=== PATIENT | female | born 1945 | race Caucasian/White ===

== ENCOUNTER → 2017-10-17 | Outpatient (CLI) | payer OTHER ==
--- NOTE | 2017-10-17 08:51 | BD ---
EXAMINATION TYPE: MG DEXA axial skeleton. DATE OF EXAM: 10/17/2017 CLINICAL HISTORY: Height: 60.75 Weight: 142 FRAX RISK QUESTIONS: Alcohol (3 or more units per day): no Family History (Parent hip fracture): no Glucocorticoids (More than 3mos): no (Ex: prednisone, prednisolone, methylprednisolone, dexamethasone, and hydrocortisone). History of Fracture in Adulthood: no Secondary Osteoporosis: 1. Type 1 Diabetes: no 2. Hyperthyroidism: no 3. Menopause before 45: no 4. Malnutrition: no 5. Chronic liver disease: no Rheumatoid Arthritis: no Current Tobacco Use: no RISK FACTORS HISTORY OF: Family History of Osteoporosis: no Active: yes Diet low in dairy products/other sources of calcium: no Postmenopausal woman: yes Take estrogen and/or progesterone medications: no Lost more than 2 inches in height since high school: no Frequent falls: no Poor Health: no Hyperparathyroidism: no Adrenal Insufficiency: no MEDICATIONS: Prednisone or other steroids: no Thyroid Medications: no Osteoporosis Medications: no EXAM MEASUREMENTS: Bone mineral densitometry was performed using the [employer] Heart System. Bone mineral density as measured about the Lumbar spine is: ----- L1-L4(G/cm2): 1.410 T Score Values are as follows: ----- L2: 1.7 ----- L3: 2.4 ----- L4: 1.9 ----- L1-L4: 1.9 Bone mineral density has: Increased 1.8% since study of: 07/02/2014 Bone mineral density about the R hip (g/cm2): 0.974 Bone mineral density about the L hip (g/cm2): 0.905 T Score values are as follows: -----R Neck: -0.5 -----L Neck: -1.0 -----R Total: 0.7 -----L Total: 0.3 Bone mineral density has: Decreased -1.8% since study of: 07/02/2014 IMPRESSION: Normal (Values between +1 and -1 indicate normal bone mass). Consider repeating this study in 5 year s or sooner if there is some new clinical indication. NOTE: T-SCORE=SD OF THE YOUNG ADULT MEAN.
--- NOTE | 2017-10-18 11:53 | MM ---
Reason for exam: screening (asymptomatic). Last mammogram was performed 1 year and 1 month ago. History: Patient is postmenopausal and has history of other cancer at age 58. Physical Findings: A clinical breast exam by your physician is recommended on an annual basis and results should be correlated with mammographic findings. MG Screening Mammo w CAD Bilateral CC and MLO view(s) were taken. Prior study comparison: September 26, 2016, bilateral MG screening mammo w CAD. September 30, 2015, bilateral MG screening mammo w CAD. The breast tissue is heterogeneously dense. This may lower the sensitivity of mammography. Finding: There are typically benign vascular, dystrophic calcifications in both breasts. Asymmetric breast tissue in the right anterior position, stable. There is no discrete abnormality. ASSESSMENT: Benign, BI-RAD 2 RECOMMENDATION: Routine screening mammogram of both breasts in 1 year.
== END | disposition home or self-care (01) ==
LOC: RADMAMWWP 06:33
PROVIDERS: ATTEND Obstetrics & Gynecology
DX: Z12.31 Encounter for screening mammogram for malignant neoplasm of breast (principal); Z13.820 Encounter for screening for osteoporosis; E78.4 Other hyperlipidemia
CPT/HCPCS: 36415; 77067; 77080; 80061; 82947; 84443

== ENCOUNTER → 2018-10-30 | Outpatient (CLI) | payer OTHER ==
--- NOTE | 2018-11-01 14:08 | MM ---
Reason for exam: screening (asymptomatic). Last mammogram was performed 1 year ago. History: Patient is postmenopausal and has history of other cancer at age 58. MG Screening Mammo w CAD Bilateral CC and MLO view(s) were taken. Prior study comparison: October 17, 2017, bilateral MG screening mammo w CAD. September 26, 2016, bilateral MG screening mammo w CAD. The breast tissue is heterogeneously dense. This may lower the sensitivity of mammography. No significant changes when compared with prior studies. ASSESSMENT: Benign, BI-RAD 2 RECOMMENDATION: Routine screening mammogram of both breasts in 1 year.
== END | disposition home or self-care (01) ==
LOC: RADMAMWWP 06:48
PROVIDERS: ATTEND Obstetrics & Gynecology
DX: Z12.31 Encounter for screening mammogram for malignant neoplasm of breast (principal)
CPT/HCPCS: 77067

== ENCOUNTER → 2019-11-02 | Outpatient (CLI) | payer OTHER ==
--- NOTE | 2019-11-02 13:27 | MM ---
Reason for exam: screening (asymptomatic). Last mammogram was performed 1 year ago. History: Patient is postmenopausal and has history of other cancer at age 58. Physical Findings: A clinical breast exam by your physician is recommended on an annual basis and results should be correlated with mammographic findings. MG Screening Mammo w CAD Bilateral CC and MLO view(s) were taken. Prior study comparison: October 30, 2018, bilateral MG screening mammo w CAD. October 17, 2017, bilateral MG screening mammo w CAD. The breast tissue is heterogeneously dense. This may lower the sensitivity of mammography. There are benign appearing round, linear, vascular calcifications bilaterally. There is no new dominant lesion. ASSESSMENT: Benign, BI-RAD 2 RECOMMENDATION: Routine screening mammogram of both breasts in 1 year.
== END | disposition home or self-care (01) ==
LOC: RADMAMWWP 06:58
PROVIDERS: ATTEND Obstetrics & Gynecology
DX: Z12.31 Encounter for screening mammogram for malignant neoplasm of breast (principal)
CPT/HCPCS: 77067

== ENCOUNTER → 2020-08-26 | Outpatient (CLI) | payer OTHER ==
[2020-08-26 10:45] VITALS: PULSE 82; RESP 18; TEMP 98
--- NOTE | 2020-08-26 10:58 | P.GSHP ---
History of Present Illness H&P Date: 08/26/20 Chief Complaint: bloody nipple discharge Katherin is a 75 year old white female seen in consultation for Dr. Crisostomo with a complaint of bloody nipple discharge. She noticed this May 14 on the right side. This has been ongoing since it started but only with pressure. She had a bilateral mammogram performed on which was benign BIRADS 2. There is no drainage from the left breast. She is not complaining of any lumps masses or nodules in her breast. She states she has intermittent discomfort in the upper outer quadrant of the right breast, it does not spread anyplace. She does not complain of any trauma or infection in the breast. Caffiene: occasional nicotine: none Theophylline: Several times a week Hormones: none Family History: patient: left groin sarcoma/surgery/radiation 2004 Hormonal History: menarche: 13 , breast fed: none, age at first :24 menopause: 51 BCP: none hormones: none Surgical History: 3 Sarcoma removed left groin Medical history: none Social History: Attending: Negative Alcohol: Occasional Drugs: Negative - Constitutional Constitutional: Denies chills, Denies fever - EENT Eyes: denies blurred vision, denies pain Ears: bilateral: tinnitus, deny: decreased hearing Ears, nose, mouth and throat: Denies headache, Denies sore throat - Breasts Breasts: bilateral: as per HPI - Cardiovascular Cardiovascular: Denies chest pain, Denies shortness of breath - Respiratory Respiratory: Denies cough, Denies 7 - Gastrointestinal Gastrointestinal: Denies abdominal pain, Denies diarrhea, Denies nausea, Denies vomiting - Genitourinary (Female) Genitourinary: Denies dysuria, Denies hematuria - Menstruation Menstruation: Reports postmenopausal - Musculoskeletal Musculoskeletal: Denies myalgias - Integumentary Integumentary: Denies pruritus, Denies rash - Neurological Neurological: Denies numbness, Denies weakness - Psychiatric Psychiatric: Denies anxiety, Denies depression - Endocrine Comment: used to be hypothyroid not on medication at this time Endocrine: Denies fatigue, Denies weight change - Hematologic/Lymphatic Comment: none - Allergic/Immunologic Allergic/Immunologic: Reports as per HPI Past Medical History 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 History of Any Multi-Drug Resistant Organisms: None Reported Past Surgical History: Section Additional Past Surgical History / Comment(s): sarcoma removed lt groin Past Anesthesia/Blood Transfusion Reactions: No Reported Reaction Past Alcohol Use History: Occasional Past Drug Use History: None Reported - Past Family History Mother Family Medical History: Coronary Artery Disease (CAD) Additional Family Medical History / Comment(s): CABG Father Family Medical History: No Reported History Medications and Allergies Home Medications Medication Instructions Recorded Confirmed Type Biotin 5 mg PO DAILY 12/09/14 12/13/14 History Allergies Allergy/AdvReac Type Severity Reaction Status Date / Time No Known Allergies Allergy Verified 12/09/14 14:48 Surgical - Exam - General well developed, well nourished, no distress - Eyes normal ocular movement - ENT no hearing loss, no congestion - Neck no masses, trachea midline - Respiratory normal expansion, normal respiratory effort - Cardiovascular Rhythm: regular Heart Sounds: normal: S1, S2 - Abdomen Abdomen: soft, non tender, no guarding, no rigid, no rebound - Integumentary normal turgor - Neurologic no disoriented, no combative - Musculoskeletal normal gait - Psychiatric oriented to time, oriented to person, oriented to place, speech is normal breast exam: BRA 36B inspection: Grade 2/3 ptosis bilateral breasts, right nipple inversion Palpation: Right breast: Multi-positional exam fibrocystic changes with palpation nipple discharge at the 11 o'clock position Right axilla: No adenopathy of concern Left breast: Fibrocystic changes and multiple positional exam no dominant masses or nodules of concern no nipple discharge Left axilla: No adenopathy of concern Guaiac test positive right nipple discharge Results Mammogram results reviewed Assessment and Plan Assessment: Impression: 1. Inversion right nipple 2. Bloody nipple discharge right side 3. Fibrocystic breast changes 4. Prior history of groin sarcoma 6. Bilateral mammogram October 2019 benign Plan: 1. Ultrasound right breast behind nipple areolar complex/diagnostic right breast mammogram 2. Right duct exploration 3. medical clearance Dr. Simpson Risks and benefits of the procedure discussed with the patient. She understands and wishes to proceed. Risks include but are not limited to bleeding, infection, reaction to the anesthetic. Cc: Dr. Murcia, Dr. Simpson encounter 35 minutes > 50% of time spent in planning and counselling
--- NOTE | 2020-08-26 12:17 | MM ---
Reason for exam: clinical finding. Last mammogram was performed 10 months ago. History: Patient is postmenopausal and has history of other cancer at age 58. Physical Findings: Breast exam performed by Dr. Fiore. MG Diagnostic Mammo RT w CAD CC and MLO view(s) were taken of the right breast. Prior study comparison: November 02, 2019, bilateral MG screening mammo w CAD. October 30, 2018, bilateral MG screening mammo w CAD. October 17, 2017, bilateral MG screening mammo w CAD. September 26, 2016, bilateral MG screening mammo w CAD. September 30, 2015, bilateral MG screening mammo w CAD. The breast tissue is heterogeneously dense. This may lower the sensitivity of mammography. Nipple slightly inverted. Stable anterior superior asymmetric density on the MLO view. Benign secretory calcifications. No significant new findings when compared with previous films. These results were verbally communicated with the patient and result sheet given to the patient on 08/26/20. ASSESSMENT: Incomplete: need additional imaging evaluation, BI-RAD 0 RECOMMENDATION: Ultrasound of the right breast.
--- NOTE | 2020-08-26 12:21 | USB ---
Reason for exam: additional evaluation requested from abnormal screening. History: Patient is postmenopausal and has history of other cancer at age 58. US Breast Limited RT Right limited breast ultrasound including focal area of concern, retroareolar and axilla demonstrates a 2.7 x 0.5cm stretch of nodular duct with internal debris at the posterior nipple. No well defined target for biopsy. Case discussed with Dr. Fiore who requests needle localization to assist with duct exploration. Posterior nipple and axilla scanned. These results were verbally communicated with the patient and result sheet given to the patient on 08/26/20. ASSESSMENT: Suspicious, BI-RAD 4 RECOMMENDATION: Localization and excision of the right breast. Dr. Fiore discussed results with patient. PRELIMINARY REPORT CALLED AND FAXED TO DR. FIORE ON 08/26/20.
== END | disposition home or self-care (01) ==
LOC: WWCWWP 09:59
PROVIDERS: ATTEND Surgery
DX: N64.52 Nipple discharge (principal)
CPT/HCPCS: 77065

== ENCOUNTER → 2020-09-23 | Outpatient (CLI) | payer OTHER ==
[2020-09-23 10:41] VITALS: BP 165/80; PULSE 72; RESP 18; TEMP 98.2
--- NOTE | 2020-09-23 10:57 | P.PN ---
Subjective Progress Note Date: 09/23/20 Principal diagnosis: bloody nipple discharge History of Present Illness H&P Date: 09-23-20 Chief Complaint: bloody nipple discharge Katherin is a 75 year old white female seen in consultation for Dr. Andressa cross a complaint of bloody nipple discharge. She noticed this May 14 on the right side. This has been ongoing since it started but only with pressure. She had a bilateral mammogram performed on which was benign BIRADS 2. There is no drainage from the left breast. She is not complaining of any lumps masses or nodules in her breast. She states she has intermittent discomfort in the up per outer quadrant of the right breast, it does not spread anyplace. She does not complain of any trauma or infection in the breast. She underwent repeat mammogram and ultrasound of the right breast on 08-26-20 and this revealed a dilated duct, but nothing which would warrant core biopsy. Caffiene: occasional nicotine: none Theophylline: Several times a week Hormones: none Family History: patient: left groin sarcoma/surgery/radiation 2004 Hormonal History: menarche: 13 , breast fed: none, age at first :24 menopause: 51 BCP: none hormones: none Surgical History: 3 Sarcoma removed left groin Medical history: none Social History: Attending: Negative Alcohol: Occasional Drugs: Negative - Constitutional Constitutional: Denies chills, Denies fever - EENT Eyes: denies blurred vision, denies pain Ears: bilateral: tinnitus, deny: decreased hearing Ears, nose, mouth and throat: Denies headache, Denies sore throat - Breasts Breasts: bilateral: as per HPI - Cardiovascular Cardiovascular: Denies chest pain, Denies shortness of breath - Respiratory Respiratory: Denies cough, - Gastrointestinal Gastrointestinal: Denies abdominal pain, Denies diarrhea, Denies nausea, Denies vomiting - Genitourinary (Female) Genitourinary: Denies dysuria, Denies hematuria - Menstruation Menstruation: Reports postmenopausal - Musculoskeletal Musculoskeletal: Denies myalgias - Integumentary Integumentary: Denies pruritus, Denies rash - Neurological Neurological: Denies numbness, Denies weakness - Psychiatric Psychiatric: Denies anxiety, Denies depression - Endocrine Comment: used to be hypothyroid not on medication at this time Endocrine: Denies fatigue, Denies weight change - Hematologic/Lymphatic Comment: none - Allergic/Immunologic Allergic/Immunologic: Reports as per HPI Objective - Exam BMI 25.5 - Constitutional General appearance: Present: average body habitus, cooperative - EENT Eyes: Present: EOMI ENT: Present: hearing grossly normal - Neck Neck: Present: normal ROM - Respiratory Respiratory: bilateral: CTA - Cardiovascular Rhythm: regular Heart sounds: normal: S1, S2 - Gastrointestinal General gastrointestinal: Present: soft - Integumentary Integumentary: Present: normal turgor - Musculoskeletal Musculoskeletal: Present: gait normal - Psychiatric Psychiatric: Present: A&O x's 3, appropriate affect, intact judgment & insight - Additional findings Additional findings: breast exam: BRA: 36B inspection: inversion right nipple; ptosis right grade 2/3, ptosis left grade 3 nipple not inverted Patient: Right breast: Multiple positional exam fibrocystic changes, at the 11 to 11:30 position there is discharge which is bloody in nature Right axilla: No adenopathy of concern Left breast: Multi-positional exam fibrocystic changes no dominant masses or nodules of concern and no nipple discharge Left axilla: No adenopathy of concern Assessment and Plan Assessment: Impression: 1. Inversion right nipple 2. Bloody nipple discharge right side 11:30 3. Fibrocystic breast changes 4. By history of groin sarcoma 5. Right breast mammogram and ultrasound showed dilated duct on [id number] 6. Her last bilateral mammogram was October 2019 this was benign Plan: Katherin underwent a mammogram and ultrasound of the right breast on 08-26-20. This did reveal a dilated duct but nothing which would warrant a core biopsy. In order to assure that we remove the duct of concern she will have needle localization prior to the surgical procedure. Therefore surgical procedure is 1. Needle localization/excisional biopsy/duct exploration right breast 2. Possible onco-plastic tissue transfer 3. Possible mastopexy incision 4. clearance form Dr. Simpson Risks and benefits of the procedure have been discussed with the patient. She understands risks include but are not limited to bleeding, infection, reaction to the anesthetic. She also understands the operative approach I have drawn a possible in decision plan for a crescent mastopexy incision. She understands that the nipple areolar complex on the right will be higher than it is on the left) approach and she wishes to proceed.
== END | disposition home or self-care (01) ==
LOC: WWCWWP 10:14
PROVIDERS: ATTEND Surgery
DX: Z53.9 Procedure and treatment not carried out, unspecified reason (principal)

== ENCOUNTER → 2020-10-24 | Outpatient (CLI) | payer OTHER ==
--- NOTE | 2020-10-25 08:24 | MM ---
Reason for exam: additional evaluation requested from prior study. Last mammogram was performed 2 months ago. History: Patient is postmenopausal and has history of other cancer at age 58. Physical Findings: Nurse did not find any significant physical abnormalities on exam. MG Diagnostic Mammo LT w CAD CC and MLO view(s) were taken of the left breast. Prior study comparison: August 26, 2020, right breast MG diagnostic mammo RT w CAD. November 02, 2019, bilateral MG screening mammo w CAD. The breast tissue is heterogeneously dense. This may lower the sensitivity of mammography. Upper outer quadrant focal asymmetry partially disperses on additional views. Precautionary ultrasound recommended. These results were verbally communicated with the patient and result sheet given to the patient on 10/24/20. ASSESSMENT: Incomplete: need additional imaging evaluation, BI-RAD 0 RECOMMENDATION: Ultrasound of the left breast. (upper outer quadrant)
--- NOTE | 2020-10-25 08:25 | USB ---
Reason for exam: additional evaluation requested from abnormal screening. History: Patient is postmenopausal and has history of other cancer at age 58. US Breast Limited LT Left limited breast ultrasound including focal area of concern, retroareolar and axilla demonstrates no cystic or solid lesion seen. Scanned 12-3 o'clock. These results were verbally communicated with the patient and result sheet given to the patient on 10/24/20. ASSESSMENT: Probably benign, BI-RAD 3 RECOMMENDATION: Follow-up diagnostic mammogram of the left breast in 6 months.
== END | disposition home or self-care (01) ==
LOC: RADMAMWWP 14:59
PROVIDERS: ATTEND Surgery
DX: R92.8 Other abnormal and inconclusive findings on diagnostic imaging of breast (principal)
CPT/HCPCS: 77065

== ENCOUNTER 2020-10-25 11:51 | Day surgery (SDC) | payer OTHER ==
[2020-10-24 08:52] VITALS: BMI 25.4
[~2020-10-25 11:51] MED LIST: DEXAMETHASONE SOD PHOSPHATE 4 MG/ML 1 ML VIAL IV ONE; HEPARIN SODIUM,PORCINE 5,000 UNIT/ML 1 ML VIAL SQ PRN; LACTATED RINGERS 1,000 ML IV SCH; LIDOCAINE 1% (10MG/ML) FOR IV START INTRADERMA PRN; MIDAZOLAM 2 MG/2 ML VIAL IV PRN; ONDANSETRON 4 MG/2 ML VIAL IVP ONE; Pre Op ABX Message 1 EACH MISC MISCELLANE ONE
[2020-10-25] MEDS ORDERED: LACTATED RINGERS 1,000 ML IV ONE (12:15)
[2020-10-25] MEDS ORDERED: ALPRAZolam 0.25 MG TAB PO ONE (12:21)
[2020-10-25] MEDS ORDERED: LIDOCAINE 1% INJ 10MG/ML (20 ML MDV) SQ ONE (14:46)
[2020-10-25] MEDS ORDERED: fentaNYL (PF) 50 MCG/ML 2 ML AMP ONE (15:36)
[2020-10-25] MEDS ORDERED: PROPOFOL 10 MG/ML 20 ML VIAL IV ONE (15:36)
[2020-10-25] MEDS ORDERED: MIDAZOLAM 2 MG/2 ML VIAL ONE (15:36)
[2020-10-25] MEDS ORDERED: LIDOCAINE 1% INJ 10MG/ML (20 ML MDV) ONE (15:36)
--- NOTE | 2020-10-25 16:44 | P.OP ---
Date of Procedure: 10/25/20 Preoperative Diagnosis: bloody Nipple discharge right breast 11:30 position Postoperative Diagnosis: Same Procedure(s) Performed: Right breast duct exploration with needle localization dilated duct preprocedure Anesthesia: ROSELYN Surgeon: Xenia Fiore Estimated Blood Loss (ml): 10 IV fluids (ml): 600 Pathology: other (Breast tissue) Condition: stable Disposition: same day Indications for Procedure: Bloody nipple discharge right breast 11:30 position was dilated duct on ultrasound Operative Findings: Dilated duct right breast Description of Procedure: Katherin is a 75-year-old white female who was noted to have bloody nipple discharge, from the right nipple at the 11:30 position. An ultrasound of the area revealed a dilated duct. The duct was localized via needle localization. The patient was brought to the operating room and following induction of anesthesia the right breast was prepped and draped in a sterile fashion. Periareolar incision was performed. This was dissected under the nipple areolar complex at the 11:30 position. This tissue was followed inferiorly to the pectoralis muscle circumferentially around the needle which had been placed for localization. Following this after assured that hemostasis was attained the pelvis specimen was painted for orientation. Titanium clips were placed. The deep tissues were closed using 3-0 Vicryl suture. The skin was closed using a 4-0 Monocryl followed by a 4-0 nylon suture. Patient tolerated the procedure in stable condition. All instrument and sponge counts were correct at the end of the case.
--- NOTE | 2020-10-25 16:47 | P.DS ---
Providers Attending physician: Xenia Fiore Primary care physician: Donavan Simpson Plan - Discharge Summary Discharge Rx Participant: No New Discharge Prescriptions: No Action Cholecalciferol [Vitamin D3] 2,000 unit PO DAILY Levothyroxine Sodium [Synthroid] 25 mcg PO DAILY Discharge Medication List Cholecalciferol [Vitamin D3] 2,000 unit PO DAILY 08/26/20 [History] Levothyroxine Sodium [Synthroid] 25 mcg PO DAILY 09/23/20 [History] Follow up Appointment(s)/Referral(s): Xenia Fiore MD [STAFF PHYSICIAN] - 11/03/20 3:20 pm Activity/Diet/Wound Care/Special Instructions: do not drive today may shower after [address] if taking narcotic pain medication wear bra at all times Discharge Disposition: HOME SELF-CARE
[2020-10-25] MEDS: HYDROmorphone 0.5 MG/0.5 ML SYRINGE IVP PRN ×3 (17:05→17:31)
[2020-10-25 17:27] VITALS: TEMP 97.1
[2020-10-25 17:36] VITALS: RESP 16
[2020-10-25] MEDS ORDERED: ONDANSETRON 4 MG/2 ML VIAL IVP ONE (17:47)
--- NOTE | 2020-10-25 18:16 | USB ---
EXAMINATION TYPE: US breast localization RT, MG diagnostic mammo RT wo CAD (mammogram after wire placement) DATE OF EXAM: 10/25/2020 CLINICAL HISTORY: 75-year-old female with bloody nipple discharge on the right for duct exploration, needle localization requested. TECHNIQUE: Needle localization with wire placement and surgical excision of segment of ectatic duct in the 10:00 right breast. COMPARISON: 08/26/2020 FINDINGS: The procedure of needle localization with wire placement and than surgical excision was explained to the patient. Benefits, alternatives, and risks were discussed. An informed consent was then obtained. The shortest pathway for procedure was chosen. Shortest pathway was a 10:00 periareolar approach. The overlying skin was prepped and draped in usual sterile fashion. Lidocaine was used as anesthetic into the skin and subcutaneous tissue up to the level of area of concern. A 7 cm Kopans needle was used. It was placed via a 10:00 periareolar approach under ultrasound guidance. The needle traversed 2 segments of ectatic duct containing hypoechoic material. At this point, wire was placed and the needle was withdrawn. Postprocedure mammogram in the MLO view was obtained and shows the wire in position. The wire was fixed to patient's skin. Images were marked for surgeon. The patient tolerated the procedure well without any immediate complication. The patient was kept in the radiology department for short stay after the procedure and then taken to surgery for surgical excision. No specimen mammogram or specimen ultrasound is obtained. The patient was kept in hospital for short stay after the procedure and then discharged home in stable condition. IMPRESSION: Successful ultrasound-guided needle localization of an ectatic, hypoechoic 10:00 duct in the right breast for surgical duct exploration. Full pathology results to follow. Pathology Results: High Risk RIGHT BREAST, EXCISION: Benign intraductal papilloma, 2 mm microscopically. Negative for in situ or invasive carcinoma. Benign margins of resection. Fibrocystic change with apocrine metaplasia, focal mild usual ductal hyperplasia, microcalcification, focal columnar cell change and sclerosing adenosis. Recommendation Follow up mammogram of the right breast in 6 months. MTDD
[2020-10-25 18:20] VITALS: BP 134/60; PULSE 60
== END 2020-10-25 18:36 | disposition home or self-care (01) ==
LOC: OR 11:51
PROVIDERS: ATTEND Surgery
DX: D24.1 Benign neoplasm of right breast (principal); N64.52 Nipple discharge; N60.41 Mammary duct ectasia of right breast; N64.4 Mastodynia; N64.59 Other signs and symptoms in breast; N64.81 Ptosis of breast; N60.12 Diffuse cystic mastopathy of left breast; N60.11 Diffuse cystic mastopathy of right breast; Z98.890 Other specified postprocedural states; Z85.831 Personal history of malignant neoplasm of soft tissue; Z78.0 Asymptomatic menopausal state; Z79.890 Hormone replacement therapy
CPT/HCPCS: 19110; 19285; 88307; 77065; J2250; J1644; J1100; J2405; J2001; J3010; J2704; J1170; 88305

== ENCOUNTER → 2020-11-04 | Outpatient (CLI) | payer OTHER ==
[2020-11-04 15:46] VITALS: BP 174/84; PULSE 56; RESP 16; TEMP 98.2
--- NOTE | 2020-11-04 15:52 | P.PN ---
Progress Note - Text Progress Note Date: 11/04/20 Katherin is a 75-year-old white female who presented with bloody nipple discharge. An ultrasound was done which revealed a dilated duct. She is status post ultrasound needle localization and excision of right breast duct. [place] [id number]. Pathology revealed intraductal papilloma. Patient has done well postoperatively. Physical examination: Incision clean and dry Impression: Intraductal papilloma right breast Plan: suture removal repeat right breast mammogram and physician exam in 6 months CC: Dr. Crisostomo, Dr. Simpson
== END | disposition home or self-care (01) ==
LOC: WWCWWP 15:11
PROVIDERS: ATTEND Surgery
DX: Z53.9 Procedure and treatment not carried out, unspecified reason (principal)

== ENCOUNTER → 2021-04-25 | Outpatient (CLI) | payer OTHER ==
--- NOTE | 2021-04-26 07:38 | MM ---
Reason for exam: follow-up at short interval from prior study. Last mammogram was performed 6 months ago. History: Patient is postmenopausal, has history of high-risk lesion on a previous biopsy at age 75, and has history of other cancer at age 58. High risk US breast localization RT of the right breast, October 25, 2020. Physical Findings: Nurse did not find any significant physical abnormalities on exam. MG Diagnostic Mammo w CAD JIM Bilateral CC and MLO view(s) were taken. Prior study comparison: October 25, 2020, right breast MG diagnostic mammo RT wo CAD. August 26, 2020, right breast MG diagnostic mammo RT w CAD. November 02, 2019, bilateral MG screening mammo w CAD. October 30, 2018, bilateral MG screening mammo w CAD. There are scattered fibroglandular densities. Right post operative change. These results were verbally communicated with the patient and result sheet given to the patient on 04/25/21. ASSESSMENT: Benign, BI-RAD 2 RECOMMENDATION: Routine screening mammogram of both breasts in 1 year.
== END | disposition home or self-care (01) ==
LOC: RADMAMWWP 14:16
PROVIDERS: ATTEND Surgery
DX: R92.8 Other abnormal and inconclusive findings on diagnostic imaging of breast (principal)
CPT/HCPCS: 77066

== ENCOUNTER → 2021-05-04 | Outpatient (CLI) | payer OTHER ==
--- NOTE | 2021-05-04 11:00 | P.PN ---
Subjective Progress Note Date: 05/04/21 Principal diagnosis: BMI 26.5 Katherin is a 75 year old white female seen initially in consultation for Dr. Crisostomo with a complaint of bloody nipple discharge. She noticed this May 14 2020 on the right side. This had been ongoing since it started but only with pressure. [place] [address] which was benign BIRADS 2. There was no drainage from the left breast. [place] [address]. Pathology revealed an intraductal papilloma. She is not complaining of any lumps masses or nodules in her breast. She is not having any more nipple discharge at this time. [place] [address] which did not show any lesions of concern was benign BIRADS 2. Routine screening of both breast 1 year was recommended. She does not complain of any trauma or infection in the breast. Caffiene: occasional nicotine: none chocolate: occasional Hormones: none Family History: patient: left groin sarcoma/surgery/radiation 2004 Hormonal History: menarche: 13 , breast fed: none, age at first :24 menopause: 51 BCP: none hormones: none Surgical History: 3 Sarcoma removed left groin torn meniscus right knee right duct exploration Medical history: herniated disc cervical and lumbar spine Bilateral carpal tunnel Social History: nicotine: Negative Alcohol: Occasional Drugs: Negative - Constitutional Constitutional: Denies chills, Denies fever - EENT Eyes: denies blurred vision, denies pain Ears: bilateral: tinnitus, deny: decreased hearing Ears, nose, mouth and throat: Denies headache, Denies sore throat - Breasts Breasts: bilateral: as per HPI - Cardiovascular Cardiovascular: Denies chest pain, Denies shortness of breath - Respiratory Respiratory: Denies cough - Gastrointestinal Gastrointestinal: Denies abdominal pain, Denies diarrhea, Denies nausea, Denies vomiting - Genitourinary (Female) Genitourinary: Denies dysuria, Denies hematuria - Menstruation Menstruation: Reports postmenopausal - Musculoskeletal Musculoskeletal: Denies myalgias - Integumentary Integumentary: Denies pruritus, Denies rash - Neurological Neurological: Denies numbness, Denies weakness - Psychiatric Psychiatric: Denies anxiety, Denies depression - Endocrine Comment: used to be hypothyroid not on medication at this time Endocrine: Denies fatigue, Denies weight change - Hematologic/Lymphatic Comment: none - Allergic/Immunologic Allergic/Immunologic: Reports as per HPI Objective - Vital Signs Vital signs: Vital Signs Temp 98.0 F 05/04/21 10:16 Pulse 73 05/04/21 10:16 Resp 18 05/04/21 10:16 BP 164/78 05/04/21 10:16 Pulse Ox 98 05/04/21 10:16 Intake & Output 05/03/21 05/04/21 05/04/21 18:59 06:59 18:59 Weight 63.503 kg - Exam BMI 26.5 - Constitutional General appearance: Present: average body habitus - EENT Eyes: Present: EOMI ENT: Present: hearing grossly normal - Neck Neck: Present: normal ROM - Respiratory Respiratory: bilateral: CTA, wheezing (at bases) - Cardiovascular Heart sounds: normal: S1, S2 - Integumentary Integumentary: Present: normal turgor - Musculoskeletal Musculoskeletal: Present: gait normal - Psychiatric Psychiatric: Present: A&O x's 3, appropriate affect, intact judgment & insight - Additional findings Additional findings: Breast exam: BRA: 36B inspection: Well-healed scar right breast related to duct exploration Palpation: Right breast: Multiple positional exam fibrocystic changes, well-healed scar from prior duct exploration, fullness at site of scar believed to be related to scar tissue Right axilla: No adenopathy of concern Left breast: Multi-positional exam no dominant masses or nodules of concern Left axilla: No adenopathy of concern Assessment and Plan Assessment: Impression: 1. bilateral wheezing at lung bases 2. Fibrocystic breast changes 3.BIRAD 2 mammogram 04-25-21 Plan: 1. Bilateral mammogram in 1 year with physician exam at that time 2. Patient is following with Dr. Simpson regarding bilateral wheezing at lung bases 3. Lumbar and cervical herniated disc/ following with neurology CC: Dr. Simpson, Dr. Crisostomo
[2021-05-04 11:19] VITALS: BP 164/78; PULSE 73; RESP 18; TEMP 98
== END ==
LOC: WWCWWP 10:01
PROVIDERS: ATTEND Surgery
DX: Z53.9 Procedure and treatment not carried out, unspecified reason (principal)

== ENCOUNTER → 2022-04-27 | Outpatient (CLI) | payer MEDICARE ==
--- NOTE | 2022-04-27 09:47 | MM ---
Reason for Exam: Screening (asymptomatic). Last screening mammogram was performed 12 month(s) ago. Patient History: Menarche at age 13. First Full-Term at age 24. Postmenopausal. Other cancer, age 58. 10/25/2020, High risk Core Biopsy on the right side. Risk Values: Joan 5 year model risk: 1.9%. NCI Lifetime model risk: 4.0%. Prior Study Comparison: 10/24/2020 Left Diagnostic Mammogram, [facility]. 10/25/2020 Right Diagnostic Mammogram, [facility]. 04/25/2021 Bilateral Diagnostic Mammogram, [facility]. Tissue Density: The breast tissue is heterogeneously dense. This may lower the sensitivity of mammography. Findings: Analyzed By CAD. Post interventional changes within the right breast. There is no suspicious group of microcalcifications or new suspicious mass in either breast. Overall Assessment: Benign, BI-RAD 2 Management: Screening Mammogram of both breasts in 1 year. A clinical breast exam by your physician is recommended on an annual basis and results should be correlated with mammographic findings. Electronically signed and approved by: Ramon Carter DO
== END | disposition home or self-care (01) ==
LOC: RADMAMWWP 06:50
PROVIDERS: ATTEND Surgery
DX: Z12.31 Encounter for screening mammogram for malignant neoplasm of breast (principal)
CPT/HCPCS: 77063; 77067

== ENCOUNTER → 2022-05-03 | Outpatient (CLI) | payer OTHER ==
[2022-05-03 08:40] VITALS: BP 172/81; PULSE 74; RESP 17; TEMP 97.8
--- NOTE | 2022-05-03 09:00 | P.PN ---
Subjective Progress Note Date: 05/03/22 Principal diagnosis: papilloma right breast resected in 10-25-20 Katherin is a 76 year old white female seen initially in consultation for Dr. Crisostomo with a complaint of bloody nipple discharge. She noticed this May 14 2020 on the right side. This had been ongoing since it started but only with pressure. She had a bilateral mammogram performed on which was benign BIRADS 2. There was no drainage from the left breast. She underwent a right breast duct exploration on . Pathology revealed an intraductal papilloma. She is not complaining of any lumps masses or nodules in her breast. She had a bilateral mammogram performed on . This was benign BIRADS 2. Postoperative changes were noted in the right breast, no lesions of concern noted in the left mammogram. She is not complaining of any nipple this charge at this time. She has no lumps masses or nodules of concern in either breast. Caffiene: occasional nicotine: none chocolate: occasional Hormones: none Family History: patient: left groin sarcoma/surgery/radiation 2004 Hormonal History: menarche: 13 , breast fed: none, age at first :24 menopause: 51 BCP: none hormones: none Surgical History: 3 Sarcoma removed left groin torn meniscus right knee right duct exploration Medical history: herniated disc cervical and lumbar spine Bilateral carpal tunnel Social History: nicotine: Negative Alcohol: Occasional Drugs: Negative - Constitutional Constitutional: Denies chills, Denies fever - EENT Eyes: denies blurred vision, denies pain Ears: bilateral: tinnitus, deny: decreased hearing Ears, nose, mouth and throat: Denies headache, Denies sore throat - Breasts Breasts: bilateral: as per HPI - Cardiovascular Cardiovascular: Denies chest pain, Denies shortness of breath - Respiratory Respiratory: Denies cough - Gastrointestinal Gastrointestinal: Denies abdominal pain, Denies diarrhea, Denies nausea, Denies vomiting - Genitourinary (Female) Genitourinary: Denies dysuria, Denies hematuria - Menstruation Menstruation: Reports postmenopausal - Musculoskeletal Musculoskeletal: Denies myalgias - Integumentary Integumentary: Denies pruritus, Denies rash - Neurological Neurological: Denies numbness, Denies weakness - Psychiatric Psychiatric: Denies anxiety, Denies depression - Endocrine Comment: used to be hypothyroid not on medication at this time Endocrine: Denies fatigue, Denies weight change - Hematologic/Lymphatic Comment: none - Allergic/Immunologic Allergic/Immunologic: Reports as per HPI Objective - Vital Signs Vital signs: Vital Signs Temp 97.8 F 05/03/22 08:37 Pulse 74 05/03/22 08:37 Resp 17 05/03/22 08:37 BP 172/81 05/03/22 08:37 Pulse Ox 97 05/03/22 08:37 FiO2 Intake & Output 05/02/22 05/03/22 05/03/22 18:59 06:59 18:59 Weight 61.235 kg - Exam BMI: 25.5 - Constitutional General appearance: Present: cooperative - EENT Eyes: Present: EOMI ENT: Present: hearing grossly normal - Neck Neck: Present: normal ROM - Respiratory Respiratory: bilateral: CTA - Cardiovascular Rhythm: regular Heart sounds: normal: S1, S2 - Gastrointestinal General gastrointestinal: Present: soft - Integumentary Integumentary: Present: normal turgor - Musculoskeletal Musculoskeletal: Present: gait normal - Psychiatric Psychiatric: Present: A&O x's 3, appropriate affect, intact judgment & insight - Additional findings Additional findings: Breast Exam: BRA: 36B Inspection: Postoperative changes right breast, bilateral grade 2 ptosis Palpation: Right breast: Multiple positional exam fibrocystic changes no dominant masses or nodules of concern Postoperative changes Right axilla: No adenopathy of concern Left breast: Multiple positional exam fibrocystic changes no dominant masses or nodules of concern Left axilla: No adenopathy of concern Fungal changes under bilateral breast patient will be given nystatin Skin changes seborrheic keratosis left breast, over her back there are some areas of seborrheic keratosis with at the right mid back near the bra strap line there is a dark nevus for which excision is recommended Assessment and Plan Assessment: Impression: Fibrocystic breast changes Prior intraductal papilloma right breast no evidence of recurrence Skin lesion right posterior back near bra strap Fungal infection under breast Plan: Bilateral mammogram in 1 year Excision of dark nevus right posterior back in the office Nystatin cream for fungal infection Cc: Dr. Murcia, Dr. Simpson
== END ==
LOC: WWCWWP 08:30
PROVIDERS: ATTEND Surgery
DX: N60.11 Diffuse cystic mastopathy of right breast (principal); N60.12 Diffuse cystic mastopathy of left breast; L98.9 Disorder of the skin and subcutaneous tissue, unspecified; B36.8 Other specified superficial mycoses; Z98.890 Other specified postprocedural states

== ENCOUNTER → 2022-08-23 | Outpatient (CLI) | payer MEDICARE ==
[2022-08-23 11:11] VITALS: BP 165/80; PULSE 68; RESP 16; TEMP 97.9
--- NOTE | 2022-08-23 11:50 | P.PCN ---
Date of Procedure: 08/23/22 Preoperative Diagnosis: lesion right posterior back at bra line Postoperative Diagnosis: same Procedure(s) Performed: excision of lesion right posterior back Anesthesia: local Surgeon: Xenia Fiore Pathology: other (lesion right posterior back) Condition: stable Disposition: same day Indications for Procedure: suspicious lesion right posterior back Operative Findings: lesion right posterior back Description of Procedure: Katherin is a 77-year-old white female with a nevus on her right posterior back for excision. The area was prepped using Betadine. 1% lidocaine was used to anesthetize the area of concern. Wide excision was performed. The lesion was approximately 1.3 cm in size. The incision was closed using 3-0 nylon suture. The patient tolerated the procedure in stable condition. The patient will follow-up in one week for suture removal.
== END | disposition home or self-care (01) ==
LOC: WWCWWP 10:52
PROVIDERS: ATTEND Surgery
DX: Z53.9 Procedure and treatment not carried out, unspecified reason (principal)
CPT/HCPCS: 88305

== ENCOUNTER → 2022-09-04 | Outpatient (CLI) | payer MEDICARE ==
--- NOTE | 2022-09-04 13:39 | P.PN ---
Progress Note - Text Progress Note Date: 09/04/22 Patient is status post removal of nevis from back on 08-23-22, this was seborrheic keratosis Incision clean and dry Plan: Follow-up April 2023 with bilateral mammogram Patient to follow up sooner any questions or concerns CC: DR. Simpson
[2022-09-04 15:28] VITALS: BP 174/76; PULSE 76; RESP 17; TEMP 97.5
== END | disposition home or self-care (01) ==
LOC: WWCWWP 11:46
PROVIDERS: ATTEND Surgery
DX: Z53.9 Procedure and treatment not carried out, unspecified reason (principal)

== ENCOUNTER 2023-04-02 10:12 | Day surgery (SDC) | payer MEDICARE ==
[2023-03-29 10:47] VITALS: BMI 25.4
[~2023-04-02 10:12] MED LIST changes: +ALPRAZolam 0.25 MG TAB PO PRN; +ALPRAZolam 0.5 MG TAB PO PRN; +ASPIRIN 325 MG TAB PO ONE; -DEXAMETHASONE SOD PHOSPHATE 4 MG/ML 1 ML VIAL IV ONE; -HEPARIN SODIUM,PORCINE 5,000 UNIT/ML 1 ML VIAL SQ PRN; -LACTATED RINGERS 1,000 ML IV SCH; -LIDOCAINE 1% (10MG/ML) FOR IV START INTRADERMA PRN; -MIDAZOLAM 2 MG/2 ML VIAL IV PRN; +NITROGLYCERIN SL TABS 0.4 MG TAB SUBLINGUAL PRN; -ONDANSETRON 4 MG/2 ML VIAL IVP ONE; -Pre Op ABX Message 1 EACH MISC MISCELLANE ONE; +SODIUM CHLORIDE 0.9% 1,000 ML in EMPTY BAG 1 BAG IV SCH
[2023-04-02] MEDS ORDERED: SODIUM CHLORIDE 0.9% 1,000 ML IV ONE (10:29)
[2023-04-02 10:58] VITALS: PULSE 70; RESP 16; TEMP 97.9
[2023-04-02] MEDS ORDERED: VERAPAMIL 2.5 MG/ML 2 ML AMP ONE (12:02)
[2023-04-02 12:06] LABS: African American GFR (CKD) >90 (>60 ml/min/1.73 sqM); Anion Gap 8 mmol/L; Blood Urea Nitrogen 16 mg/dL (7-17); Calcium 9.1 mg/dL (8.4-10.2); Carbon Dioxide 23 mmol/L (22-30); Chloride 99 mmol/L (98-107); Glucose 91 mg/dL (74-99); Non-African American GFR(CKD) 89 (>60 ml/min/1.73 sqM); Sodium 130 mmol/L (137-145)
[2023-04-02] MEDS ORDERED: HEPARIN SODIUM 1,000 UN/ML (10ML VL) ONE (12:07)
[2023-04-02] MEDS ORDERED: fentaNYL (PF) 50 MCG/ML 2 ML AMP ONE (12:07)
[2023-04-02] MEDS ORDERED: fentaNYL (PF) 50 MCG/ML 2 ML AMP IV ONE (12:29)
[2023-04-02] MEDS ORDERED: LIDOCAINE 1% INJ 10MG/ML (5 ML VIAL-PF) SQ ONE (12:33)
[2023-04-02] MEDS ORDERED: VERAPAMIL SYRINGE (5 MG/10 ML) INTRAARTER ONE (12:34)
[2023-04-02] MEDS ORDERED: HEPARIN SODIUM 1,000 UN/ML (10ML VL) IV ONE (12:38)
[2023-04-02] MEDS ORDERED: IOPAMIDOL-370 100ML BTL INJ ONE (12:41)
[2023-04-02] MEDS ORDERED: RX INFO: IV CONTRAST WAS GIVEN 1 EACH MISC MISCELLANE PRN (13:06)
--- NOTE | 2023-04-02 13:11 | P.CARDCATH ---
Date of Procedure: 04/02/23 Description of Procedure: Cardiac Catheterization: The patient is a 77-year-old female with a known history of hypertension hyperlipidemia who recently had an abnormal MPI. Recommendations were made regarding cardiac catheterization, the risks and the complications were discussed with the patient who is in full understanding and agreement. Procedure Description: Patient was brought to dental laboratory worker in fasting semi-sedated state after receiving Fentanyl and Benadryl achieiving moderate conscious sedated state. Using Xylocaine Anesthesia and Seldinger technique, a 6-[place] sheath was introduced in the right radial artery . Subsequently, selective coronary angiography was performed using a 5-[place] 3.5 bend Luis catheter. Multiple views of the coronary artery including hemiaxial views were obtained. The 5-[place] pigtail catheter was used to cross the aortic valve and LVEDP was calculated. Following that, catheter and sheath were removed. Hemostasis was obtained with deployment of TR band . There was no immediate complication. Patient was returned to room in stable condition. Of note, the patient received a total of 3500 units of intravenous heparin as well as intra-arterial verapamil. Findings: Left main: This is a large-size vessel, bifurcating into LAD and left circumflex, left main has no high-grade stenosis LAD: This is a large-size vessel patient to the apex giving rise to 2 diagonal branch, the LAD has no evidence of obstructive disease Left circumflex: This is a codominant vessel giving rise to large proximal obtuse marginal branch and the second one this morning and caliber, distally bifurcates into PDA and PLV, the left circumflex and its branches have no evidence of high-grade stenosis RCA: This is a codominant moderately sized vessel giving rise to PDA distally. The right coronary artery is tortuous in the midsegment and has no obstructive disease. Left Ventriculogram: Not performed Hemodynamics: There is no gradient across the aortic valve, LVEDP was 16-18 mmHg Conclusion: 1. Normal coronary arteries 2. Codominant system Recommendations: I see no evidence of obstructive disease at this time, I have recommended to continue medical therapy with aggressive coronary risks modifications. The findings and the recommendations were discussed with the patient and the family and they were in full understanding and agreement. Duration of sedation is 12 minutes.
[2023-04-02] MEDS ORDERED: SODIUM CHLORIDE 0.9% 1,000 ML IV SCH (13:15)
[2023-04-02 14:31] VITALS: BP 124/62
[2023-04-02] MEDS ORDERED: amLODIPine 5 MG TAB PO SCH (21:00)
[2023-04-03] MEDS ORDERED: LEVOTHYROXINE 25 MCG TAB PO SCH (09:00)
[2023-04-03] MEDS ORDERED: NON FORMULARY DRUG (Aspirin [St. Joseph Aspirin Ec] 81 MG Tab) PO SCH (09:00)
[2023-04-03] MEDS ORDERED: ATORVASTATIN 20 MG TAB PO SCH (09:00)
[2023-04-03] MEDS ORDERED: lisinopriL 20 MG TAB PO SCH (09:00)
== END 2023-04-02 16:45 | disposition home or self-care (01) ==
LOC: CATHCVL 10:12
PROVIDERS: ATTEND Internal Medicine Interventional Cardiology
DX: I77.9 Disorder of arteries and arterioles, unspecified (principal); I10 Essential (primary) hypertension; E78.2 Mixed hyperlipidemia; I25.9 Chronic ischemic heart disease, unspecified; Z79.82 Long term (current) use of aspirin; Z79.899 Other long term (current) drug therapy; E07.9 Disorder of thyroid, unspecified; Z79.890 Hormone replacement therapy; Z87.891 Personal history of nicotine dependence; F10.20 Alcohol dependence, uncomplicated
CPT/HCPCS: 93458; 99152; 80048; C1769; C1894; J2001; J3010; J1644; Q9967

== ENCOUNTER → 2023-04-29 | Outpatient (CLI) | payer MEDICARE ==
--- NOTE | 2023-04-30 19:49 | MM ---
Reason for Exam: Screening (asymptomatic). Last screening mammogram was performed 12 month(s) ago. Patient History: Menarche at age 13. First Full-Term at age 24. Postmenopausal. 10/25/2020, High risk Core Biopsy on the right side. Risk Values: Joan 5 year model risk: 1.9%. NCI Lifetime model risk: 3.8%. Prior Study Comparison: 10/25/2020 Right Diagnostic Mammogram, [facility]. 04/25/2021 Bilateral Diagnostic Mammogram, [facility]. 04/27/2022 Bilateral MG 3D screening mammo w/cad, [facility]. Tissue Density: The breast tissue is heterogeneously dense. This may lower the sensitivity of mammography. Findings: Analyzed By CAD. Postexcisional scar redemonstrated on the right. Benign bilateral vascular calcifications. Unchanged asymmetric density superior left MLO view. There is no suspicious group of microcalcifications or new suspicious mass in either breast. Overall Assessment: Benign, BI-RAD 2 Management: Screening Mammogram of both breasts in 1 year. . Patient should continue monthly self-breast exams. A clinical breast exam by your physician is recommended on an annual basis. This exam should not preclude additional follow-up of suspicious palpable abnormalities. Note on Joan scores and lifetime risk: 1. A Joan score greater than 3% is considered moderate risk. If this is the case, consider specialist referral to assess eligibility for a risk reducing agent. 2. If overall lifetime risk for the development of breast cancer is 20% or higher, the patient may qualify for future screening with alternating mammogram and breast MRI. Electronically signed and approved by: Dalia La M.D. Radiologist
== END | disposition home or self-care (01) ==
LOC: RADMAMWWP 07:59
PROVIDERS: ATTEND Surgery
DX: Z12.31 Encounter for screening mammogram for malignant neoplasm of breast (principal); Z78.0 Asymptomatic menopausal state
CPT/HCPCS: 77063; 77067

== ENCOUNTER → 2023-05-02 | Outpatient (CLI) | payer MEDICARE ==
--- NOTE | 2023-05-02 16:25 | P.PN ---
Subjective Progress Note Date: 05/02/23 papilloma right breast resected in 10-25-20 Katherin is a 76 year old white female seen initially in consultation for Dr. Crisostomo with a complaint of bloody nipple discharge. She noticed this May 14 2020 on the right side. This had been ongoing since it started but only with pressure. [place] [address] which was benign BIRADS 2. There was no drainage from the left breast. She underwent a right breast duct exploration on . Pathology revealed an intraductal papilloma. She is not complaining of any lumps masses or nodules in her breast. [place] [address] which was benign BIRADS 2. She is not complaining of any new lumps masses or nodules of concern in either breast. She is not complaining of any nipple discharge at this time. Caffiene: occasional nicotine: none chocolate: occasional Hormones: none Family History: patient: left groin sarcoma/surgery/radiation 2004 Hormonal History: menarche: 13 , breast fed: none, age at first :24 menopause: 51 BCP: none hormones: none Surgical History: 3 Sarcoma removed left groin torn meniscus right knee right duct exploration Medical history: herniated disc cervical and lumbar spine Bilateral carpal tunnel cardiac cath right breast duct exploration Social History: nicotine: Negative Alcohol: Occasional Drugs: Negative - Constitutional Constitutional: Denies chills, Denies fever - EENT Eyes: denies blurred vision, denies pain Ears: bilateral: tinnitus, deny: decreased hearing Ears, nose, mouth and throat: Denies headache, Denies sore throat - Breasts Breasts: bilateral: as per HPI - Cardiovascular Cardiovascular: Denies chest pain, Denies shortness of breath - Respiratory Respiratory: Denies cough - Gastrointestinal Gastrointestinal: Denies abdominal pain, Denies diarrhea, Denies nausea, Denies vomiting - Genitourinary (Female) Genitourinary: Denies dysuria, Denies hematuria - Menstruation Menstruation: Reports postmenopausal - Musculoskeletal Musculoskeletal: Denies myalgias - Integumentary Integumentary: Denies pruritus, Denies rash - Neurological Neurological: Denies numbness, Denies weakness - Psychiatric Psychiatric: Denies anxiety, Denies depression - Endocrine Comment: used to be hypothyroid not on medication at this time Endocrine: Denies fatigue, Denies weight change - Hematologic/Lymphatic Comment: none - Allergic/Immunologic Allergic/Immunologic: Reports as per HPI Objective - Constitutional General appearance: Present: cooperative - EENT Eyes: Present: EOMI ENT: Present: hearing grossly normal - Neck Neck: Present: normal ROM - Respiratory Respiratory: bilateral: CTA - Cardiovascular Rhythm: regular Heart sounds: normal: S1, S2 - Integumentary Integumentary: Present: normal turgor - Musculoskeletal Musculoskeletal: Present: gait normal - Psychiatric Psychiatric: Present: A&O x's 3, appropriate affect, intact judgment & insight - Additional findings Additional findings: Breast Exam: BRA: 36B Inspection: Postoperative changes right breast, bilateral grade 2 ptosis Palpation: Right breast: Multiple positional exam fibrocystic changes no dominant masses or nodules of concern Postoperative changes Right axilla: No adenopathy of concern Left breast: Multiple positional exam fibrocystic changes no dominant masses or nodules of concern Left axilla: No adenopathy of concern Assessment and Plan Assessment: Impression: Fibrocystic breast changes Prior intraductal papilloma right breast no evidence of recurrence bilateral mammogram 04-29-23 BIRAD 2 Plan: Bilateral mammogram in 1 year follow up in 1 year Cc: Dr. Murcia, Dr. Simpson Additional CC's: Donavan Simpson
[2023-05-02 16:27] VITALS: BP 137/77; PULSE 80; RESP 17; TEMP 97.6
== END ==
LOC: WWCWWP 15:39
PROVIDERS: ATTEND Surgery
DX: Z12.31 Encounter for screening mammogram for malignant neoplasm of breast (principal); N60.19 Diffuse cystic mastopathy of unspecified breast; N64.52 Nipple discharge

== ENCOUNTER → 2023-05-31 | Outpatient (CLI) | payer MEDICARE ==
--- NOTE | 2023-05-31 10:13 | BD ---
EXAMINATION TYPE: Axial Bone Density DATE OF EXAM: 05/31/2023 CLINICAL HISTORY: 78 years old Female. ICD-10 CODE: Z78.0 ASYMPTOMATIC MENOPAUSAL STATE Height: 60.5in Weight: 135lb FRAX RISK QUESTIONS: Secondary Osteoporosis: RISK FACTORS HISTORY OF: Active: yes Postmenopausal woman: yes MEDICATIONS: Thyroid Medications: Which medication: Levothyroxine How Long: about 2 years Additional Medications: bp meds, cholesterol med, cardiac med, vitamin d Additional History: EXAM MEASUREMENTS: Bone mineral densitometry was performed using the [employer] System. Bone mineral density as measured about the Lumbar spine is: ----- L1-L4(G/cm2): 1.356 T Score Values are as follows: ----- L1: 0.7 ----- L2: 1.8 ----- L3: 1.7 ----- L4: 1.5 ----- L1-L4: 1.5 Z Score Values are as follows: ----- L1: 2.7 ----- L2: 3.7 ----- L3: 3.6 ----- L4: 3.4 ----- L1-L4: 3.4 Bone mineral density has: Decreased -3.8% since study of: 10-17-2017 Bone mineral density about the R hip (g/cm2): 1.028 Bone mineral density about the L hip (g/cm2): 1.102 T Score values are as follows: -----R Neck: -0.2 -----L Neck: -0.3 -----R Total: 0.2 -----L Total: 0.7 Z Score values are as follows: -----R Neck: 1.9 -----L Neck: 1.8 -----R Total: 2.1 -----L Total: 2.7 Bone mineral density has: Decreased -0.7% since study of: 10-17-2017 FRAX%s: The graph provided illustrates a 8.7% chance for a major osteoporotic fx and a 1.0% chance fo r the hips probability for fx in 10 years time. IMPRESSION: Normal (Values between +1 and -1 indicate normal bone mass). Consider repeating this study in 5 year s or sooner if there is some new clinical indication. NOTE: T-SCORE=SD OF THE YOUNG ADULT MEAN.
== END | disposition home or self-care (01) ==
LOC: RADBDWWP 08:38
PROVIDERS: ATTEND Obstetrics & Gynecology
DX: Z78.0 Asymptomatic menopausal state (principal)
CPT/HCPCS: 77080

== ENCOUNTER → 2024-05-06 | Outpatient (CLI) | payer MEDICARE ==
--- NOTE | 2024-05-07 09:22 | MM ---
Reason for Exam: Screening (asymptomatic). Last screening mammogram was performed 12 month(s) ago. Patient History: Menarche at age 13. First Full-Term at age 24. Postmenopausal. 10/25/2020, High risk Core Biopsy on the right side. Risk Values: Joan 5 year model risk: 1.8%. NCI Lifetime model risk: 3.5%. Prior Study Comparison: 04/25/2021 Bilateral Diagnostic Mammogram, [facility]. 04/27/2022 Bilateral MG 3D screening mammo w/cad, [facility]. 04/29/2023 Bilateral MG 3D screening mammo w/cad, [facility]. Tissue Density: The breasts are heterogeneously dense, which may obscure small masses. Findings: Analyzed By CAD. Postbiopsy changes involving the right breast are stable surgical clips and architectural distortion. There are benign appearing calcifications. No new dominant mass. Overall Assessment: Benign, BI-RAD 2 Management: Screening Mammogram of both breasts in 1 year. . Patient should continue monthly self-breast exams. A clinical breast exam by your physician is recommended on an annual basis. This exam should not preclude additional follow-up of suspicious palpable abnormalities. Note on Joan scores and lifetime risk: 1. A Joan score greater than 3% is considered moderate risk. If this is the case, consider specialist referral to assess eligibility for a risk reducing agent. 2. If overall lifetime risk for the development of breast cancer is 20% or higher, the patient may qualify for future screening with alternating mammogram and breast MRI. Electronically signed and approved by: Brandon Nagy M.D. Radiologis
== END | disposition home or self-care (01) ==
LOC: RADMAMWWP 08:58
PROVIDERS: ATTEND Surgery
DX: Z12.31 Encounter for screening mammogram for malignant neoplasm of breast (principal); R92.333 Mammographic heterogeneous density, bilateral breasts; Z78.0 Asymptomatic menopausal state
CPT/HCPCS: 77063; 77067

== ENCOUNTER → 2024-05-08 | Outpatient (CLI) | payer MEDICARE ==
--- NOTE | 2024-05-08 10:07 | P.PN ---
Subjective Progress Note Date: 05/08/24 Principal diagnosis: dense breast fibrocystic breast changes prior papilloma right breast scaring right breast papilloma right breast resected in 10-25-20; fiborcystic breast disease, dense breast Katherin is a 78 year old white female seen initially in consultation for Dr. Crisostomo with a complaint of bloody nipple discharge. She noticed this May 14 2020 on the right side. This had been ongoing since it started but only with pressure. She had a bilateral mammogram performed on which was benign BIRADS 2. There was no drainage from the left breast. She underwent a right breast duct exploration on . Pathology revealed an intraductal papilloma. She had a bilateral mammogram performed on which was benign BIRADS 2. This was personally reviewed and interpreted. She is not complaining of any new lumps masses or nodules of concern in either breast. She is not complaining of any nipple discharge at this time. She does had a dark nevus on her left lateral breast. There is the skin takes to start popping up over her chest and back. Caffiene: occasional nicotine: none chocolate: occasional Hormones: none Family History: patient: left groin sarcoma/surgery/radiation 2004 Hormonal History: menarche: 13 , breast fed: none, age at first :24 menopause: 51 BCP: none hormones: none Surgical History: 3 Sarcoma removed left groin 2004 torn meniscus right knee right duct exploration Right Achilles tendon surgery Medical history: herniated disc cervical and lumbar spine Bilateral carpal tunnel cardiac cath right breast duct exploration Social History: nicotine: Negative Alcohol: Occasional Drugs: Negative - Constitutional Constitutional: Denies chills, Denies fever - EENT Eyes: denies blurred vision, denies pain Ears: bilateral: tinnitus, deny: decreased hearing Ears, nose, mouth and throat: Denies headache, Denies sore throat - Breasts Breasts: bilateral: as per HPI - Cardiovascular Cardiovascular: Denies chest pain, Denies shortness of breath - Respiratory Respiratory: Denies cough - Gastrointestinal Gastrointestinal: Denies abdominal pain, Denies diarrhea, Denies nausea, Denies vomiting - Genitourinary (Female) Genitourinary: Denies dysuria, Denies hematuria - Menstruation Menstruation: Reports postmenopausal - Musculoskeletal Musculoskeletal: Denies myalgias - Integumentary Integumentary: Denies pruritus, Denies rash - Neurological Neurological: Denies numbness, Denies weakness - Psychiatric Psychiatric: Denies anxiety, Denies depression - Endocrine Comment: used to be hypothyroid not on medication at this time Endocrine: Denies fatigue, Denies weight change - Hematologic/Lymphatic Comment: none - Allergic/Immunologic Allergic/Immunologic: Reports as per HPI Objective - Constitutional General appearance: Present: cooperative - EENT Eyes: Present: EOMI ENT: Present: hearing grossly normal - Neck Neck: Present: normal ROM - Respiratory Respiratory: bilateral: CTA - Cardiovascular Rhythm: regular Heart sounds: normal: S1, S2 - Integumentary Integumentary Comment(s): dark Nevus left lateral breast approximately 1 cm x 5 mm. Seborrheic keratosis over the chest and back Integumentary: Present: normal turgor - Musculoskeletal Musculoskeletal: Present: gait normal - Psychiatric Psychiatric: Present: A&O x's 3, appropriate affect, intact judgment & insight - Additional findings Additional findings: Breast Exam: BRA: 36B Inspection: Postoperative changes right breast, bilateral grade 2 ptosis Palpation: Right breast: Multiple positional exam fibrocystic changes no dominant masses or nodules of concern Postoperative changes Right axilla: No adenopathy of concern Left breast: Multiple positional exam fibrocystic changes no dominant masses or nodules of concern Left axilla: No adenopathy of concern Assessment and Plan Assessment: Impression: Fibrocystic breast changes dense breast Prior intraductal papilloma right breast no evidence of recurrence bilateral mammogram 05-06-24 BIRAD 2 Skin nevus left breast lateral aspect, variegated color with irregular borders Plan: Bilateral mammogram in 1 year follow up in 1 year excision nevus left breast Discussed risk and benefits of removing the nevus. She understands and this will be scheduled in the near future. Cc: Dr. Simpson
[2024-05-08 10:16] VITALS: BP 138/82; PULSE 75; RESP 16; TEMP 97.8
== END ==
LOC: WWCWWP 09:41
PROVIDERS: ATTEND Surgery
DX: R92.8 Other abnormal and inconclusive findings on diagnostic imaging of breast (principal); N60.11 Diffuse cystic mastopathy of right breast; N60.12 Diffuse cystic mastopathy of left breast; R92.30 Dense breasts, unspecified; D22.5 Melanocytic nevi of trunk; N64.52 Nipple discharge; Z85.3 Personal history of malignant neoplasm of breast

== ENCOUNTER 2025-03-03 07:54 | Day surgery (SDC) | payer MEDICARE ==
[2025-03-03] MEDS: IV FLUID CONTINUATION 1,000 ML IV ONE ×2 (08:33→09:05)
[2025-03-03] MEDS: LACTATED RINGERS 1,000 ML IV SCH (08:33)
[2025-03-03 08:43] VITALS: TEMP 97.9
[2025-03-03] MEDS ORDERED: PROPOFOL 10 MG/ML 20 ML VIAL IV ONE (09:06)
--- NOTE | 2025-03-03 09:35 | P.PCN ---
Date of Procedure: 03/03/25 Procedure(s) Performed: BRIEF HISTORY: Patient is a 79-year-old pleasant white female scheduled for an elective colonoscopy as a part of screening screening for colon cancer. PROCEDURE PERFORMED: Colonoscopy. PREOPERATIVE DIAGNOSIS: Screening for colon cancer. IV sedation per Anesthesia. PROCEDURE: After informed consent was obtained, the patient, was brought into the endoscopy unit. IV sedation was administered by Anesthesia under continuous monitoring. Digital rectal examination was normal. Initially the Olympus CF-160 flexible video colonoscope was then inserted in the rectum, gradually advanced into the cecum without any difficulty. Careful examination was performed as the scope was gradually being withdrawn. Ileocecal valve and the appendiceal orifice were visualized and appeared normal. Prep was excellent. Mucosa of the cecum, ascending colon, transverse colon, descending colon, sigmoid colon, and rectum appeared normal. Retroflexion was performed in the rectum and no lesions were seen. The patient tolerated the procedure well. IMPRESSION: Normal-appearing colon from rectum to cecum with no evidence of colorectal neoplasia. RECOMMENDATIONS: Findings of this examination were discussed with the patient as well as her family.. She was advised to be on a high-fiber diet and Supplements on regular basis.
[2025-03-03 10:03] VITALS: BP 138/73; PULSE 66; RESP 16
== END 2025-03-03 10:10 | disposition home or self-care (01) ==
LOC: ORWHC2ENDO 07:54
PROVIDERS: ATTEND Internal Medicine Gastroenterology
DX: Z12.11 Encounter for screening for malignant neoplasm of colon (principal); I10 Essential (primary) hypertension; E78.5 Hyperlipidemia, unspecified; E03.9 Hypothyroidism, unspecified; Z79.890 Hormone replacement therapy; Z79.899 Other long term (current) drug therapy; Z98.890 Other specified postprocedural states; Z85.831 Personal history of malignant neoplasm of soft tissue
CPT/HCPCS: J2704; G0121

== ENCOUNTER → 2025-05-07 | Outpatient (CLI) | payer MEDICARE ==
--- NOTE | 2025-05-07 11:27 | MM ---
Reason for Exam: Screening (asymptomatic). Last screening mammogram was performed 12 month(s) ago. Patient History: Menarche at age 13. First Full-Term at age 24. Postmenopausal. 10/25/2020, High risk Core Biopsy on the right side. Risk Values: Joan 5 year model risk: 1.8%. NCI Lifetime model risk: 3.3%. Prior Study Comparison: 04/27/2022 Bilateral MG 3D screening mammo w/cad, LOCATED [facility]IN [facility]. 04/29/2023 Bilateral MG 3D screening mammo w/cad, LOCATED [facility]. 05/06/2024 Bilateral MG 3D screening mammo w/cad, LOCATED [facility]. Tissue Density: The breasts are heterogeneously dense, which may obscure small masses. Findings: Analyzed By CAD. Right breast surgical clips. Right breast: There is no suspicious group of microcalcifications or new suspicious mass. Benign-appearing calcifications right breast. Left breast: There is no suspicious group of microcalcifications or new suspicious mass. Benign-appearing calcifications left breast. Overall Assessment: Benign, BI-RAD 2 Management: Screening Mammogram of both breasts in [address] [facility] will attempt to contact patient to return for supplemental views and ultrasound if indicated. Patient should continue monthly self-breast exams. A clinical breast exam by your physician is recommended on an annual basis. This exam should not preclude additional follow-up of suspicious palpable abnormalities. Note on Joan scores and lifetime risk: 1. A Joan score greater than 3% is considered moderate risk. If this is the case, consider specialist referral to assess eligibility for a risk reducing agent. 2. If overall lifetime risk for the development of breast cancer is 20% or higher, the patient may qualify for future screening with alternating mammogram and breast MRI. [facility], , 05/07/2025 11:24 AM. Electronically signed and approved by: Ramon Carter DO
== END | disposition home or self-care (01) ==
LOC: RADMAMWWP 09:59
PROVIDERS: ATTEND Surgery
DX: Z12.31 Encounter for screening mammogram for malignant neoplasm of breast (principal); R92.333 Mammographic heterogeneous density, bilateral breasts; R92.1 Mammographic calcification found on diagnostic imaging of breast; Z78.0 Asymptomatic menopausal state
CPT/HCPCS: 77063; 77067

== ENCOUNTER → 2025-05-13 | Outpatient (CLI) | payer MEDICARE ==
[2025-05-13 11:08] VITALS: BP 171/73; PULSE 65; RESP 16; TEMP 97.6
--- NOTE | 2025-05-13 11:08 | P.PN ---
Subjective Progress Note Date: 05/13/25 Principal diagnosis: dense breast fibrocystic breast changes prior papilloma right breast scaring right breast papilloma right breast resected in 10-25-20; fiborcystic breast disease, dense breast nevis left breast lateral aspect 05/13/25 Principal diagnosis: dense breast fibrocystic breast changes prior papilloma right breast scaring right breast papilloma right breast resected in 10-25-20; fiborcystic breast disease, dense breast Katherin is a 79 year old white female seen initially in consultation for Dr. Crisostomo with a complaint of bloody nipple discharge. She noticed this May 14 2020 on the right side. This had been ongoing since it started but only with pressure. She had a bilateral mammogram performed on which was benign BIRADS 2. There was no drainage from the left breast. She underwent a right breast duct exploration on . Pathology revealed an intraductal papilloma. She had a bilateral mammogram performed on which was benign BIRADS 2. This was personally reviewed and interpreted. She is not complaining of any new lumps masses or nodules of concern in either breast. She is not complaining of any nipple discharge at this time. She does had a dark nevus on her left lateral breast. She is not complaining of any new lumps masses or nodules of concern in either breast. She is not complaining of any nipple discharge. Caffiene: occasional nicotine: none chocolate: occasional Hormones: none Family History: patient: left groin sarcoma/surgery/radiation 2004 Hormonal History: menarche: 13 , breast fed: none, age at first :24 menopause: 51 BCP: none hormones: none Surgical History: 3 Sarcoma removed left groin 2004 torn meniscus right knee right duct exploration Right Achilles tendon surgery Medical history: herniated disc cervical and lumbar spine Bilateral carpal tunnel cardiac cath right breast duct exploration Social History: nicotine: Negative Alcohol: Occasional Drugs: Negative - Constitutional Constitutional: Denies chills, Denies fever - EENT Eyes: denies blurred vision, denies pain Ears: bilateral: tinnitus, deny: decreased hearing Ears, nose, mouth and throat: Denies headache, Denies sore throat - Breasts Breasts: bilateral: as per HPI - Cardiovascular Cardiovascular: Denies chest pain, Denies shortness of breath - Respiratory Respiratory: Denies cough - Gastrointestinal Gastrointestinal: Denies abdominal pain, Denies diarrhea, Denies nausea, Denies vomiting - Genitourinary (Female) Genitourinary: Denies dysuria, Denies hematuria - Menstruation Menstruation: Reports postmenopausal - Musculoskeletal Musculoskeletal: Denies myalgias - Integumentary Integumentary: Denies pruritus, Denies rash - Neurological Neurological: Denies numbness, Denies weakness - Psychiatric Psychiatric: Denies anxiety, Denies depression - Endocrine Comment: used to be hypothyroid not on medication at this time Endocrine: Denies fatigue, Denies weight change - Hematologic/Lymphatic Comment: none - Allergic/Immunologic Allergic/Immunologic: Reports as per HPI Objective - Constitutional General appearance: Present: cooperative - EENT Eyes: Present: EOMI ENT: Present: hearing grossly normal - Neck Neck: Present: normal ROM - Respiratory Respiratory: bilateral: CTA - Cardiovascular Rhythm: regular Heart sounds: normal: S1, S2 - Integumentary Integumentary: Present: normal turgor - Psychiatric Psychiatric: Present: A&O x's 3, appropriate affect, intact judgment & insight - Additional findings Additional findings: Breast Exam: BRA: 36B Inspection: Postoperative changes right breast, bilateral grade 2 ptosis Palpation: Right breast: Multiple positional exam fibrocystic changes no dominant masses or nodules of concern Postoperative changes Right axilla: No adenopathy of concern Left breast: Multiple positional exam fibrocystic changes no dominant masses or nodules of concern Left axilla: No adenopathy of concern Assessment and Plan Assessment: Impression: Fibrocystic breast changes dense breast Prior intraductal papilloma right breast no evidence of recurrence bilateral mammogram 05-07-25 BIRAD 2 Skin nevus left breast lateral aspect, variegated color with irregular borders Plan: Bilateral mammogram in 1 year, April 2026 follow up in 1 year Excise nevus left lateral breast Cc: Dr. Simpson
== END ==
LOC: WWCWWP 10:33
PROVIDERS: ATTEND Surgery
DX: N60.19 Diffuse cystic mastopathy of unspecified breast (principal); D24.1 Benign neoplasm of right breast; D22.5 Melanocytic nevi of trunk; R92.30 Dense breasts, unspecified